=== PATIENT | male | born 1985 | race Two or more races ===

== ENCOUNTER 2021-07-22 09:42 | Outpatient (CLI) | payer OTHER ==
--- NOTE | 2021-07-22 13:03 | MRI Report ---
PROCEDURE: Elbow LT W/O INDICATIONS: PAIN IN ELBOW, PAIN SHOULDER TECHNIQUE: Noncontrast coronal proton density fast spin echo and T2 fast spin echo with fat saturation, axial an d sagittal T1 spin echo and T2 fast spin echo with fat saturation through the elbow. COMPARISON: None. FINDINGS: Image quality: Excellent. Lateral structures: The lateral ulnar collateral ligament and radial collateral ligament both appear attenuated with intrasubstance T2 hyperintense signal. The overlying common extensor tendon also ap pears attenuated with intrasubstance T2 hyperintense signal at its humeral insertion. Medial structures: The ulnar collateral ligament appears intact. The overlying common flexor tendon appears normal. The ulnar nerve appears normal in size and signal within the cubital tunnel. Anterior structures: The biceps and brachialis tendons both appear intact as they insert onto the pr oximal radius and ulna, respectively. No bicipitoradial bursal fluid. The median and radial neurova scular bundles appear normal; no focal muscle atrophy to suggest nerve impingement. Posterior structures: The triceps tendon appears intact. No olecranon bursal fluid. Bone and cartilage: No bone marrow contusions or fractures. No osteochondral injuries. IMPRESSION: 1. Finding is consistent with lateral epicondylitis with tendinosis and low-grade intrasubstance part ial thickness involving proximal common extensor tendon origin and sprain/low-grade partial thickness tear involving underlying lateral collateral ligaments. 2. No marrow edema. No fracture or dislocation. No significant joint effusion or intra-articular loos e body. 3. Rest of the elbow tendons and ligaments are intact. Reviewed by: Mil Wilson MD on 07/22/2021 1:02 PM PST Approved by: Mil Wilson MD on 07/22/2021 1:02 PM PST Station ID: [id number]
--- NOTE | 2021-07-22 13:22 | MRI Report ---
PROCEDURE: Shoulder LT W/O INDICATIONS: PAIN IN ELBOW, PAIN SHOULDER TECHNIQUE: Noncontrast oblique coronal T2 fast spin echo with fat saturation, oblique sagittal T1 spin echo and T2 fast spin echo with fat saturation, axial T1 spin echo and T2 fast spin echo with fat saturation t hrough the shoulder. COMPARISON: None. FINDINGS: Image quality: Excellent. Rotator cuff: Tendinosis and low-grade articular and bursal surface partial-thickness tear involving distal supraspinatus at its insertion on humeral head is seen extending to muscular tendinous junctio n. Distal infraspinatus tendinosis is also noted. Distal subscapularis tendinosis is also seen. No fu ll-thickness rotator cuff tendon rupture. No rotator cuff muscle atrophy on sagittal images. Bones and bursae: No bone marrow contusions or fractures. Mild acromioclavicular joint osteoarthriti c changes are seen with small downward osteophyte formation depressing on musculotendinous junction o f supraspinatus. No pathologic subacromial subdeltoid bursal fluid is present. Capsule and soft tissues: In the absence of intra-articular contrast, there is subtle signal abnorma lity involving inferior labrum at 5-7 o'clock position concerning for inferior labral tear. The gleno humeral ligaments appear intact. The long head of the biceps tendon demonstrates normal location and morphology. The rotator interval appears normal, without fibrosis. The coracohumeral ligament is n ormal in thickness. IMPRESSION: 1. Tendinosis and low-grade articular and bursal surface partial-thickness involving distal supraspin atus extending to muscular tendinous junction. Mild to distal infraspinatus and subscapularis tendino sis. No full-thickness rotator cuff tendon rupture. No muscle atrophy. 2. Mild acromioclavicular joint osseous arthritis. No fracture or dislocation. No significant joint e ffusion or subacromial subdeltoid bursal fluid. 3. Finding is concerning for a subtle inferior labral tear at 5 to 7:00 position. Reviewed by: Mil Wilson MD on 07/22/2021 1:20 PM PST Approved by: Mil Wilson MD on 07/22/2021 1:20 PM PST Station ID: [id number]
== END 2021-07-22 09:43 | disposition home or self-care (01) ==
LOC: DI 09:42
PROVIDERS: ATTEND Student in an Organized Health Care Education/Training Program
DX: M75.112 Incomplete rotator cuff tear or rupture of left shoulder, not specified as traumatic (principal); M19.012 Primary osteoarthritis, left shoulder; S53.492A Other sprain of left elbow, initial encounter